=== PATIENT | male | born 1955 | race Caucasian/White ===

== ENCOUNTER 2024-08-06 18:49 | Emergency (ER) | payer OTHER ==
[~2024-08-06] VITALS: Ht 182.9 cm; Wt 83.9 kg
[2024-08-06 19:03] VITALS: BP 156/78
[2024-08-06] MEDS ORDERED: PROAIR RESPICL90 MCG (19:32)
[2024-08-06] MEDS ORDERED: MONT10T PO (19:32)
[2024-08-06] MEDS ORDERED: Cetirizine HCl10 MG PO (19:32)
[2024-08-06] MEDS ORDERED: ROSUVASTATIN CA10 MG PO (19:32)
[2024-08-06] MEDS ORDERED: TAMSULOSIN HCL0.4 M1 PO (19:33)
== END 2024-08-06 20:19 | disposition home or self-care (01) ==
LOC: ER 18:49
DX: S61.214A Laceration without foreign body of right ring finger without damage to nail, initial encounter (principal); J45.909 Unspecified asthma, uncomplicated; Z79.899 Other long term (current) drug therapy; W29.0XXA Contact with powered kitchen appliance, initial encounter
CPT/HCPCS: 12001; 99282-25

== ENCOUNTER 2024-11-27 07:26 | Day surgery (SDC) | payer OTHER ==
[~2024-11-27] VITALS: Ht 182.9 cm; Wt 82.7 kg
[~2024-11-27 07:26] MED LIST: Cetirizine HCl10 MG PO; MONT10T PO; PROAIR RESPICL90 MCG; ROSUVASTATIN CA10 MG PO; TAMSULOSIN HCL0.4 M1 PO
[2024-11-27] MEDS ORDERED: Lactated Ringer's 1,000 ML IV ONE ×3 (07:32→11:07)
[2024-11-27] MEDS ORDERED: Tranexamic Acid 100 ML IV ONE (07:37)
[2024-11-27] MEDS ORDERED: CLAR500 PO (07:59)
[2024-11-27] MEDS ORDERED: EPINEPhrine HCl 1 MG / ML 30ML Vial ONE (08:06)
[2024-11-27] MEDS ORDERED: Lidocaine 1%-Epineph 1:200000 30 ML SDV ONE (08:07)
[2024-11-27] MEDS ORDERED: propofoL 100 ML IV ONE ×2 (08:16→09:18)
[2024-11-27] MEDS ORDERED: propofoL 20 ML IV ONE (08:17)
[2024-11-27] MEDS ORDERED: FentaNYL Citrate 50 MCG/ML 2 ML Injection ONE ×3 (08:18→09:07)
[2024-11-27] MEDS ORDERED: Rocuronium Bromide 10 MG/ML 5ML Injection IV ONE (08:19)
[2024-11-27] MEDS ORDERED: Dexamethasone Sod Phos 10 MG/ML 1ML VIAL ONE (08:45)
[2024-11-27] MEDS ORDERED: HYDROmorphone HCl/Pf 1MG SYR ONE ×2 (09:13→09:44)
[2024-11-27] MEDS ORDERED: Ondansetron HCl 2 MG / ML 2ML Vial ONE ×2 (09:57→11:20)
[2024-11-27] MEDS ORDERED: propofoL 50 ML IV ONE (10:09)
[2024-11-27] MEDS ORDERED: Sugammadex Sodium 200 MG/2ML SDV (100 MG/ML) ONE (10:23)
[2024-11-27] MEDS ORDERED: Naloxone HCl 0.4MG / ML 1ML Vial ONE (10:36)
--- NOTE | 2024-11-27 10:56 | NUR ---
11/27/24 1056 Sylvia Jerez PT OPENED EYES AND FOLLOWED COMMANDS
--- NOTE | 2024-11-27 11:24 | NUR ---
11/27/24 1124 Sylvia Jerez REPORT GIVEN TO HUEY MARTINEZ
[2024-11-27 12:04] VITALS: BP 132/81
== END 2024-11-27 12:10 | disposition home or self-care (01) ==
LOC: ORSCSDS 07:26
DX: J32.0 Chronic maxillary sinusitis (principal); J34.2 Deviated nasal septum; J34.3 Hypertrophy of nasal turbinates; J34.89 Other specified disorders of nose and nasal sinuses; J32.9 Chronic sinusitis, unspecified; N40.0 Benign prostatic hyperplasia without lower urinary tract symptoms; Z79.899 Other long term (current) drug therapy
CPT/HCPCS: C2625; J0171; J1100; J1171; J2310; J2405; J2704; J3010; J7120